=== PATIENT | female | born 2000 | race African-American/Black ===

== ENCOUNTER 2019-05-01 08:10 | Emergency (ER) | payer MEDICAID ==
[~2019-05-01] VITALS: Ht 177.8 cm; Wt 81.6 kg
[2019-05-01 08:19] VITALS: Ht 177.8 cm; Wt 81.6 kg
[2019-05-01 08:54] VITALS: BP 105/69
== END 2019-05-01 08:54 | disposition home or self-care (01) ==
LOC: ED 08:10
DX: H66.92 Otitis media, unspecified, left ear (principal); Z98.890 Other specified postprocedural states